=== PATIENT | male | born 2005 | race Hispanic/Latino ===

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

== ENCOUNTER 2024-11-24 14:18 | Emergency (ER) | payer SELFPAY ==
[~2024-11-24] VITALS: Ht 170.2 cm; Wt 127.0 kg
[2024-11-24] MEDS ORDERED: LIDOCAINE HCL 1% 20 ML VIAL INJ SCH (14:29)
--- NOTE | 2024-11-24 14:58 | ERN ---
ED Note History of Present Illness Stated Complaint: NAIL INJURY Chief Complaint: Finger Injury Time Seen by MD: 14:20 Time Seen by Midlevel: 14:23 Dictation: 19-year-old male with no past medical history coming in with complaints of nail pain. Patient states he tripped and something caught his currently canal. Patient states the nail and his own nail lifted. States he is up-to-date with the his vaccinations. Allergies: Coded Allergies: No Known Drug Allergies (Unverified Allergy, Unknown, 11/24/24) Past Medical History Past Medical History: Other Surgical History: None Review of System Dictation Constitutional: Negative for fever,chills, and weight loss Eyes: Negative for injury, pain,redness, and discharge ENT: Negative for injury,pain or swelling Cardiovascular: Negative for chest pain, palpitations, and edema Respiratory: Negative for shortness of breath, cough, and wheezing, Abdomen/GI: Negative for abdominal pain, nausea, vomiting, diarrhea, and constipation Back: Negative for injury and pain : Negative for injury, bleeding and discharge MS/Extremity: Negative for injury and deformity Skin: Negative for rash, and discoloration, right thumb nail lifting Neuro: Negative for headache, weakness, numbness, tingling, and seizure Psych: Negative for suicide ideation, homicidal ideation, and hallucinations Review of Systems: was completed Initial Vital Sign VS Vital Signs Date Time Temp Pulse Resp B/P (MAP) Pulse Ox O2 Delivery O2 Flow Rate FiO2 11/24/24 14:19 97.7 79 18 165/100 99 Room Air 0 Physical Exam Dictation General: awake, alert, NAD Head/Face: Normocephalic, atraumatic Eyes: PERRL, EOMI, vision at baseline ENT: oral cavity clear, TMs clear, no signs of infection Neck: Trachea midline, supple, no nuchal rigidity Cardiovascular: RRR, normal S1/S2, No MRGs, no JVD Respiratory: CTAB, no respiratory distress, No rales or wheezes Abdomen: Soft, non-tender, non-distended, normal bowel sounds, no guarding or rebound. Skin: Warm, dry, normal turgor, no rash, right thumb acrylic nail and patient is now traumatic avulsion, partially, acrylic is very sick unable to suture down nail or removed acrylic. Neuro: COAx4, GCS 15, strength 5/5, CN 2-12 intact, normal cerebellar exam, normal gait, Psych: Normal behavior, mood, and affect normal ED Course ED Course Orders Procedure Category Date Status Time Lidocaine Hcl 1% 20ml PHA 11/24/24 In Process Vial (Lidocaine Hc 14:29 Current Medications Medications (Trade) Dose Ordered Sig/Caleb Route PRN Reason Start Time Stop Time Status Last Admin Dose Admin Lidocaine HCl (Lidocaine HCl 1% 20ml Vial) ONCE INJ 11/24/24 14:29 11/24/24 18:30 Vital Signs Date Time Temp Pulse Resp B/P (MAP) Pulse Ox O2 Delivery O2 Flow Rate FiO2 11/24/24 14:19 97.7 79 18 165/100 99 Room Air 0 Medical Decision Making MDM MDM: 19-year-old male with no past medical history coming in with complaints of nail pain. Patient states he tripped and something caught his currently canal. Patient states the nail and his own nail lifted. States he is up-to-date with the his vaccinations. CBC showed note for nail removal. Nail will be covered with petroleum gauze, then nonadherent, then regular gauze. We will prescribe patient antibiotic. Educated patient to keep the area clean and covered to prevent any infection in now that the nail is removed it will be more sensitive. Educated to return to the hospital if he develop any signs of infection. Differential diagnosis: Traumatic canal avulsion, laceration, Rationale: Tests considered and ordered secondary to shared decision making include: Previous outside records reviewed: Old ER visits. Risk of complication and/or morbidity or mortality of patient management: None Medications-Per medication reconciliation Need for hospitalization: Patient does not meet criteria for hospitalization. Need for emergency major/minor surgery: No There are no social concerns with this patient. Prescription drug management Prescriptions will include symptomatic care Patient's prior external medical records from other ER visits were reviewed by me as indicated. Prior testing and results from previous visits were reviewed. Prior tests were taken into account with medical decision making and resource utilization, independent historian/historians were used to obtain complete medical history. I independently interpreted the test that were performed, results were reviewed by me and considered findings on radiology if ordered. Medical management and examination interpretation discussions were had by me with other qualified healthcare professionals as indicated for the patient's care. Procedure Progress Nail removal using a digital block, lidocaine, right 5th digit DX & DISP Disposition: Discharge Departure Impression: Primary Impression: Traumatic avulsion of nail plate of finger Condition: Stable Scripts Cephalexin Monohydrate (Keflex) 500 Mg Cap 500 MG PO QID for 7 Days, #28 CAP Prov: DARNELL MC NP 11/24/24 Additional Instructions: Clean nail with soap and water. Keep covered we are going to be out in risk it getting infected. Take antibiotics as prescribed. Follow up with your PCP. Return to the hospital if you have any signs of infection. Referrals: PRISCA JEFFERY (PCP) Time of Disposition: 15:23 I have reviewed the case, and I agree with, Diagnosis and Plan DARNELL MC NP Nov 24, 2024 14:58
[2024-11-24] MEDS ORDERED: CEPH500B PO (15:24)
--- NOTE | 2024-11-24 16:00 | NUR ---
WOUND CARE PROVIDED
[2024-11-24 16:22] VITALS: BP 155/91; PULSE 81; RESP 18; TEMP 97.8; O2SAT 97
== END 2024-11-24 16:43 | disposition home or self-care (01) ==
LOC: EDH 14:18
DX: S61.336A Puncture wound without foreign body of right little finger with damage to nail, initial encounter (principal); M79.644 Pain in right finger(s); W01.0XXA Fall on same level from slipping, tripping and stumbling without subsequent striking against object, initial encounter; Y93.89 Activity, other specified; Y92.89 Other specified places as the place of occurrence of the external cause; Y99.8 Other external cause status
CPT/HCPCS: 11730; 99284